=== PATIENT | male | born 1980 | race Two or more races ===

== ENCOUNTER 2023-11-26 08:34 | Emergency (ER) | payer MEDICARE, OTHER ==
[~2023-11-26] VITALS: Ht 185.4 cm; Wt 111.3 kg
[2023-11-26] MEDS: PROCHLORPERAZINE EDISYLATE 5 MG/ML 2ML VIAL IV ONE (09:28)
[2023-11-26] MEDS: PANTOPRAZOLE 40 MG/10 ML VIAL INJ IV ONE (09:28)
[2023-11-26] MEDS: SODIUM CHLORIDE 0.9% 1,000 ML IVB ONE (09:29)
[2023-11-26] MEDS: MORPHINE SULFATE 4 MG/ML SYR/VIAL IV ONE (09:29)
[2023-11-26 09:43] LABS: Hematocrit 50.2 % (41.0-53.0); Hemoglobin 17.1 g/dL (13.5-17.5); Mean Corpuscular Hemoglobin 29.9 pg (28.0-32.0); Red Blood Cells 5.71 10^6/uL (4.5-5.90); Red Cell Distribution Width 14.5 % (11.8-14.3); White Blood Cell 13.9 10^3/uL (4.4-10.8)
[2023-11-26 09:54] LABS: Basophils % (manual) 0 (0.0-2.0); Blast Cells 0; Eosinophils % (manual) 0 (0-7); Metamyelocytes % 0; Myelocytes % 0; Promyelocytes % 0; Reactive Lymphocytes 0
[2023-11-26 10:05] LABS: Alanine Aminotransferase 60 U/L (7-40); Alkaline Phosphatase 88 U/L (46-116); Anion Gap 9 (5-15); Aspartate Aminotransferase 28 U/L (13-40); BUN/Creatinine Ratio 11.3 (10.0-20.0); Bilirubin, Total 2.1 mg/dL (0.2-1.0); Blood Urea Nitrogen 14 mg/dL (9-23); Carbon Dioxide 23 mmol/L (20-30); Chloride 106 mmol/L (98-107); Glucose 139 mg/dL (74-106); Potassium 4.1 mmol/L (3.5-5.1); Sodium 138 mmol/L (136-145); Total Protein 8.5 g/dL (5.7-8.2)
[2023-11-26 10:22] LABS: Anisocytosis Slight; Band Neutrophils % (manual) 3; Lymphocytes % (manual) 2 (10.0-50.0); Monocytes % (manual) 5 (0-12); Platelet Estimate Adequate
[2023-11-26 10:34] LABS: Lipase 26 U/L (12-53)
[2023-11-26] MEDS ORDERED: DIPH2.5T73 PO (11:14)
[2023-11-26] MEDS ORDERED: ZOFR4T PO (11:14)
[2023-11-26 11:15] VITALS: BP 121/76; TEMP 98.5
[2023-11-26 11:23] VITALS: PULSE 95; RESP 16; O2SAT 97
== END 2023-11-26 11:24 | disposition home or self-care (01) ==
LOC: ER 08:34
DX: K52.9 Noninfective gastroenteritis and colitis, unspecified (principal); Z88.0 Allergy status to penicillin
CPT/HCPCS: 36415; 74176; 80053; 83690; 85007; 85027; 87040; 96374; 96375; 99285; J0780; J2270; J2470